=== PATIENT | male | born 1945 | race Caucasian/White ===

== ENCOUNTER → 2021-06-25 | Outpatient (CLI) | payer MEDICARE, MEDICAID | LOC: RAD 14:21 | DX: M25.511 Pain in right shoulder (principal); M25.521 Pain in right elbow ==

== ENCOUNTER → 2024-05-14 | Outpatient (CLI) | payer MEDICARE, MEDICAID ==
[~2024-05-14] MED LIST: ATORVASTATIN CA10 MG PO; BACTRIM DS TAB1 EACH PO; SYMBICORT1 AE2 IH
== END ==
LOC: RAD 10:59
DX: M51.36 Other intervertebral disc degeneration, lumbar region (principal); M43.17 Spondylolisthesis, lumbosacral region